=== PATIENT | male | born 1975 | race Hispanic/Latino ===

== ENCOUNTER 2019-05-05 10:29 | Emergency (ER) | payer SELFPAY ==
--- NOTE | 2019-05-05 13:14 | Emergency Department Report ---
ED Abdominal Pain HPI - General Chief Complaint: Abdominal Pain Stated Complaint: ABD PAIN/BACK PAIN Time Seen by Provider: 05/05/19 12:49 Source: patient Mode of arrival: Ambulatory Limitations: No Limitations - History of Present Illness Initial Comments: 43-year-old male presents to the emergency room complaining of upper abdominal pain with radiation to his back and shoulder 2-3 days. Patient states that he has a history of acid and using his upper abdominal pain will resolve with Rolaids or [place] that has not done that today. 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 Patient states that they makes it worse only thing that makes it better was [place]'s. Patient denies any nausea no vomiting no fever no chills. Patient does report a past medical history of gallstones in H pyloric. Patient states he has been treated for H. pylori and never followed back up to see if it resolved totally. Patient reported yeast to take ibuprofen and acetaminophen which will help at times. Patient reports that his pain is 4.5 out of 10. MD Complaint: abdominal pain Onset/Timin -: days(s) Location: epigastric Radiation: back Severity scale (0 -10): 4 Quality: sharp Consistency: intermittent Improves With: nothing Worsens With: nothing Associated Symptoms: denies other symptoms - Related Data Previous Rx's Medication Instructions Recorded Last Taken Type Ibuprofen [Motrin 800 MG tab] 800 mg PO Q8HR PRN #30 tablet 05/05/19 Unknown Rx Allergies Allergy/AdvReac Type Severity Reaction Status Date / Time Penicillins Allergy Unknown Verified 05/05/19 10:41 ED Review of Systems ROS: Stated complaint: ABD PAIN/BACK PAIN Other details as noted in HPI Comment: All other systems reviewed and negative ED Past Medical Hx - Past Medical History Previous Medical History?: Yes Hx GERD: Yes Additional medical history: gallstones. H.Pylori - Surgical History Past Surgical History?: No - Social History Smoking Status: Current Every Day Smoker Substance Use Type: None - Medications Home Medications: Home Medications Medication Instructions Recorded Confirmed Last Taken Type Ibuprofen [Motrin 800 MG tab] 800 mg PO Q8HR PRN #30 tablet 05/05/19 Unknown Rx ED Physical Exam - General Limitations: No Limitations General appearance: alert, in no apparent distress - Head Head exam: Present: atraumatic, normocephalic - Eye Eye exam: Present: normal appearance - ENT ENT exam: Present: mucous membranes moist - Neck Neck exam: Present: normal inspection - Respiratory Respiratory exam: Present: normal lung sounds bilaterally. Absent: respiratory distress - Cardiovascular Cardiovascular Exam: Present: regular rate, normal rhythm. Absent: systolic murmur, diastolic murmur, rubs, gallop - GI/Abdominal GI/Abdominal exam: Present: soft, tenderness (epigastric with deep palpation). Absent: distended - Rectal Rectal exam: Present: deferred - Back Exam Back exam: Present: normal inspection - Neurological Exam Neurological exam: Present: alert, oriented X3, normal gait - Psychiatric Psychiatric exam: Present: normal affect, normal mood - Skin Skin exam: Present: warm, dry, intact, normal color. Absent: rash ED Course Vital Signs 05/05/19 10:41 Temperature 97.7 F Pulse Rate 69 Respiratory 16 Rate Blood Pressure 147/78 [Left] O2 Sat by Pulse 98 Oximetry ED Medical Decision Making - Lab Data Result diagrams: 05/05/19 13:29 05/05/19 13:45 - Radiology Data Radiology results: report reviewed Patient: PAT APPIAH MR#: [id number] : 1975 Acct:[id number] Age/Sex: 43 / M ADM Date: 05/05/19 Loc: ED Attending Dr: Ordering Physician: WAYNE WRIGHT Date of Service: 05/05/19 Procedure(s): US abdomen complete Accession Number(s): [id number] cc: WAYNE WRIGHT ULTRASOUND ABDOMEN, COMPLETE INDICATION: upper abd pain that radiates to back. COMPARISON: No relevant prior imaging study available. FINDINGS: Pancreas: No significant abnormality. Abdominal Aorta: No significant abnormality. IVC: No significant abnormality. Liver: The liver measures 15.1 cm in length. There is moderate diffuse fatty infiltration throughout the liver.. Normal hepatopedal blood flow in the main portal vein. Gallbladder: The gallbladder is contracted and contains multiple large shadowing gallstones.. Bile ducts: No significant abnormality. Common bile duct measures 4 mm. Kidneys: Right: 10.7 cm in length. No significant abnormality. Left: 12.4 cm in length. No significant abnormality. Spleen: No significant abnormality. Free fluid: None. Additional Findings: None. IMPRESSION: Hepatic steatosis. Cholelithiasis but no evidence for acute cholecystitis.. Signer Name: Srikanth Joseph Jr, MD Signed: 05/05/2019 1:54 PM Workstation Name: [id number] Transcribed By: REINA Dictated By: SRIKANTH JOSEPH JR, MD Electronically Authenticated By: SRIKANTH JOSEPH JR, MD Signed Date/Time: 05/05/19 1354 DD/ 1352 TD/TT: - Medical Decision Making 43-year-old male presents to the emergency room complaining of upper abdominal pain with radiation to his back and shoulder 2-3 days. Patient states that he has a history of acid and using his upper abdominal pain will resolve with Rolaids or [place] that has not done that today. 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 Patient states that they makes it worse only thing that makes it better was [place]'s. Patient denies any nausea no vomiting no fever no chills. Patient does report a past medical history of gallstones in H pyloric. Patient states he has been treated for H. pylori and never followed back up to see if it resolved totally. Patient reported yeast to take ibuprofen and acetaminophen which will help at times. Patient reports that his pain is 4.5 out of 10. Critical care attestation.: If time is entered above; I have spent that time in minutes in the direct care of this critically ill patient, excluding procedure time. ED Disposition Clinical Impression: Cholelithiasis without cholecystitis Disposition: - TO HOME OR SELFCARE Is pt being admited?: No Does the pt Need Aspirin: No Condition: Stable Instructions: Cholelithiasis (ED), Biliary Colic (ED) Additional Instructions: Ultrasound shows you to have multiple gallbladder stones without infection. Recommend free to take ibuprofen or Tylenol for pain management. I recommended a low-fat diet weight loss refrain from alcohol use. Please follow-up with general surgery if she continued to have discomfort. Prescriptions: Ibuprofen [Motrin 800 MG tab] 800 mg PO Q8HR PRN #30 tablet PRN Reason: Pain , Severe (7-10) Referrals: SAROJ CRAIG MD [Staff Physician] - 3-5 Days
[2019-05-05 13:19] LABS: Bilirubin,Urine NEG (Negative); Blood,Urine NEG (Negative); Color,Urine Yellow (Yellow); Protein,Urine <15 mg/dL mg/dL (Negative); Urobilinogen,Urine < 2.0 mg/dL (<2.0); WBC,Urine < 1.0 /HPF (0.0-6.0)
--- NOTE | 2019-05-05 13:58 | Ultrasound Report ---
ULTRASOUND ABDOMEN, COMPLETE INDICATION: upper abd pain that radiates to back. COMPARISON: No relevant prior imaging study available. FINDINGS: Pancreas: No significant abnormality. Abdominal Aorta: No significant abnormality. IVC: No significant abnormality. Liver: The liver measures 15.1 cm in length. There is moderate diffuse fatty infiltration throughout the liver.. Normal hepatopedal blood flow in the main portal vein. Gallbladder: The gallbladder is contracted and contains multiple large shadowing gallstones.. Bile ducts: No significant abnormality. Common bile duct measures 4 mm. Kidneys: Right: 10.7 cm in length. No significant abnormality. Left: 12.4 cm in length. No signif icant abnormality. Spleen: No significant abnormality. Free fluid: None. Additional Findings: None. IMPRESSION: Hepatic steatosis. Cholelithiasis but no evidence for acute cholecystitis.. Signer Name: Srikanth Joseph Jr, MD Signed: 05/05/2019 1:54 PM Workstation Name: [id number]
[2019-05-05 14:35] LABS: Basophils # (Auto) 0.1 K/mm3 (0.0-0.1); Basophils % (Auto) 0.8 % (0.0-1.8); Eosinophils # (Auto) 0.2 K/mm3 (0.0-0.4); Eosinophils % (Auto) 2.2 % (0.0-4.3); Hematocrit 46.4 % (35.5-45.6); Hemoglobin 15.8 gm/dl (11.8-15.2); Lymphocytes # (Auto) 1.9 K/mm3 (1.2-5.4); Lymphocytes % (Auto) 24.6 % (13.4-35.0); Mean Corpuscular HGB Conc 34 % (32-34); Mean Corpuscular Volume 97 fl (84-94); Monocytes # (Auto) 0.4 K/mm3 (0.0-0.8); Monocytes % (Auto) 5.5 % (0.0-7.3); Platelet Count 243 K/mm3 (140-440); Red Blood Count 4.79 M/mm3 (3.65-5.03); Red Cell Distribution Width 14.4 % (13.2-15.2)
[2019-05-05 15:15] LABS: Alanine Aminotransferase 23 units/L (7-56); Albumin 4.2 g/dL (3.9-5); BUN/Creatinine Ratio 23; Blood Urea Nitrogen 18 mg/dL (9-20); Calcium 9.6 mg/dL (8.4-10.2); Hemolysis Index 7
[2019-05-05 17:17] VITALS: BP 118/74
== END 2019-05-05 17:16 | disposition home or self-care (01) ==
LOC: ED 10:29
DX: K80.80 Other cholelithiasis without obstruction (principal); F17.200 Nicotine dependence, unspecified, uncomplicated; K21.9 Gastro-esophageal reflux disease without esophagitis; Z88.0 Allergy status to penicillin
CPT/HCPCS: 36415; 76700; 80053; 81001; 83690; 85025